=== PATIENT | female | born 2005 | race Two or more races ===

== ENCOUNTER → 2024-10-16 | Emergency (ER) | payer OTHER ==
[~2024-10-16] VITALS: Ht 188 cm; Wt 77.1 kg
[2024-10-16 19:12] VITALS: BP 124/75; O2SAT 99
== END | disposition designated cancer center or children's hospital (05) ==
LOC: EMR PED 19:01 → ER 19:01 → EMR PED 20:49
DX: H57.10 Ocular pain, unspecified eye (principal)